=== PATIENT | female | born 1955 | race Two or more races ===

== ENCOUNTER 2025-02-21 20:17 | Emergency (ER) | payer OTHER ==
[~2025-02-21] VITALS: Ht 154.9 cm; Wt 79.4 kg
[2025-02-21] MEDS ORDERED: CHILDREN'S ASPI81 MG (20:31)
[2025-02-21] MEDS ORDERED: MECLIZINE HCL 12.5 MG TABLET PO ONE ×2 (21:00)
[2025-02-21 21:46] LABS: PH,URINE 5.5 (5.0-8.0); URINE APPEARANCE Clear; URINE BILIRRUBIN Negative (NEGATIVE); URINE BLOOD Moderate; URINE COLOR Yellow; URINE GLUCOSE Negative (NEGATIVE); URINE KETONE Trace (NEGATIVE); URINE LEUKOCYTE Trace; URINE NITRATE Negative; URINE PROTEIN Negative (NEGATIVE)
[2025-02-21 21:47] LABS: BASO % 0.7 % (0.1-1.2); EOS % 1.4 % (0.7-7.0); HEMATOCRIT 35.3 % (34.1-44.9); HEMOGLOBIN 11.8 g/dL (11.2-15.7); LYMPH # 2.21 (1.18-3.74); LYMPH % 31.9 % (19.3-53.1); MEAN CORPUSCULAR HEMOGLOBIN 28.3 pg (25.6-32.2); MONO % 8.7 % (4.7-12.5); NEUT # 3.96 (1.56-6.13); NEUT % 57.2 % (34.0-71.1); PLATELET COUNT 264 K/uL (163-369); RED BLOOD COUNT 4.17 M/uL (3.93-5.22); RED CELL DISTRIBUTION WIDTH 13.2 % (11.6-14.4)
[2025-02-21 21:50] LABS: URINE EPITHELIAL CELLS 1.8 uL (0.0-38.8); URINE RBC 117.8 uL (0.0-20.8); URINE WBC 7.5 uL (0.0-23.2)
[2025-02-21 21:52] LABS: URINE BACTERIA 3.6 uL (0.0-1933); URINE CAST 0.14 uL (0.0-1.40)
[2025-02-21 21:54] LABS: COVID-19 AG NEGATIVE (NEGATIVE)
[2025-02-21 22:06] LABS: ALBUMIN 3.8 gm/dL (3.4-5.0); BILIRUBIN TOTAL 0.51 mg/dL (0.3-1.2); CALCIUM 9.1 mg/dL (8.5-10.1); CREATININE SERUM 0.94 mg/dL (0.55-1.02); GFR 59.39; GLOBULINA 4.2 G/DL (2.4-3.5); POTASSIUM 4.05 mEq/L (3.5-5.1)
[2025-02-21 22:18] LABS: INFLUENZA A AG NEGATIVE (NEGATIVE); INFLUENZA B AG NEGATIVE (NEGATIVE)
[2025-02-21] MEDS ORDERED: MECLIZINE HCL50 MG PO (23:43)
[2025-02-21] MEDS ORDERED: PEPCID AC20 MG PO (23:43)
[2025-02-21] MEDS ORDERED: BACTRIM DS TAB1 EACH PO (23:43)
== END 2025-02-21 23:57 | disposition home or self-care (01) ==
LOC: ER 20:17
PROVIDERS: General Practice
DX: R42 Dizziness and giddiness (principal); Z20.822 Contact with and (suspected) exposure to COVID-19